=== PATIENT | female | born 1970 | race Caucasian/White ===

== ENCOUNTER → 2016-10-04 | Outpatient (CLI) | payer BC ==
[~2016-10-04] MED LIST: NORCO 325 MG-51 TAB PO; OMEPRAZOLE20 MG PO; PARAFON FORTE500 MG PO; PREDNICOT10 MG PO; PROBIOTIC FORMU1 CAP PO; WELLBUTRIN XL300 MG PO; ZANTAC 300300 MG PO
[2016-10-04 08:18] LABS: HEMATOCRIT 40.2 % (37.0-47.0); HEMOGLOBIN 13.6 g/dl (12.0-16.0); MEAN CELL VOLUME 96.9 fl (81.0-99.0); MEAN CORPUSCULAR HGB 32.8 pg (27.0-31.0); MEAN CORPUSCULAR HGB CONC 33.8 g/dl (33.0-37.0); MEAN PLATELET VOLUME 8.6 fl (9.6-12.3); RED BLOOD COUNT 4.15 10*6/uL (4.10-5.10); WHITE BLOOD COUNT 4.8 10*3/uL (4.8-10.8)
[2016-10-04 08:47] LABS: ALBUMIN 3.9 gm/dl (3.1-4.5); ALKALINE PHOSPHATASE 51 U/L (45-117); BILIRUBIN, TOTAL 0.6 mg/dl (0.2-1.0); BUN 13 mg/dl (7-24); CARBON DIOXIDE 27 mmol/L (21-32); CHLORIDE 107 mmol/L (98-107); CHOLESTEROL 198 mg/dL (<200); EST GLOM FILT AFRICAN AMERICAN > 60 ml/min; GLUCOSE 100 mg/dL (65-99); HDL CHOLESTEROL 113 mg/dl (40-60); LDL CHOLESTEROL 78 mg/dL (9-159); SGOT/AST 13 IU/L (3-35); SGPT/ALT 30 U/L (12-78); SODIUM 143 mmol/L (136-145); TOTAL PROTEIN 7.4 gm/dL (6.4-8.2); TRIGLYCERIDES 37 mg/dl (<150); VLDL CHOLESTEROL 7 mg/dL (6-40)
== END | disposition home or self-care (01) ==
LOC: LAB 07:58
PROVIDERS: Family Medicine
DX: M47.896 Other spondylosis, lumbar region (principal); E78.00 Pure hypercholesterolemia, unspecified; E55.9 Vitamin D deficiency, unspecified; R53.83 Other fatigue; M54.5 Low back pain

== ENCOUNTER → 2017-02-01 | Outpatient (CLI) | payer BC | END | disposition home or self-care (01) | LOC: MAMMO 08:32 | DX: Z12.31 Encounter for screening mammogram for malignant neoplasm of breast (principal) ==

== ENCOUNTER → 2023-01-29 | Outpatient (CLI) | payer SELFPAY | END | disposition home or self-care (01) | LOC: MAMMO 01-15 00:51 | PROVIDERS: ATTEND Nurse Practitioner | DX: N63.14 Unspecified lump in the right breast, lower inner quadrant (principal); N63.24 Unspecified lump in the left breast, lower inner quadrant; R92.2 Inconclusive mammogram ==